=== PATIENT | male | born 1955 | race Caucasian/White ===

== ENCOUNTER → 2017-02-18 | Outpatient (CLI) | payer OTHER ==
[~2017-02-18] MED LIST: AMPH30CA3 PO; ASPI1TAB83 PO; EFF75 PO; HYDR1CAP85 PO; LORA-749 PO; LSN20 PO; MULT-506 PO; PRD20 PO
--- NOTE | 2017-02-18 11:58 | DIAGNOSTIC IMAGING REPORT ---
RENAL ULTRASOUND HISTORY: R31.9 Hematuria COMPARISON: None. FINDINGS: Right kidney: 12.1 cm. No hydronephrosis. Normal corticomedullary differentiation and cortical thickness. A 3.1 cm lower pole cyst. Left kidney: 11.4 cm. No hydronephrosis. Normal corticomedullary differentiation and cortical thickness. Bladder: No bladder wall thickening. The bilateral ureteral jets were identified. IMPRESSION: 1. A 3.1 cm cyst within the lower pole of the right kidney. 2. No hydronephrosis. Electronically signed by: Logan Clark M.D. 02/18/2017 11:56 AM Dictated Date/Time: 02/18/2017 11:55 AM
--- NOTE | 2017-02-18 12:12 | DIAGNOSTIC IMAGING REPORT ---
KUB CLINICAL HISTORY: Hematuria. COMPARISON STUDY: Renal ultrasound February 18, 2017. FINDINGS: No urinary calculi are identified on this exam. Bowel gas pattern is normal. Penetration is suboptimal. IMPRESSION: 1. No urinary calculi identified. 2. No evidence of a bowel obstruction. Electronically signed by: Jairo Deleon M.D. 02/18/2017 12:10 PM Dictated Date/Time: 02/18/2017 12:09 PM
== END | disposition home or self-care (01) ==
LOC: C.ULTR 11:20
PROVIDERS: ATTEND Family Medicine
DX: R31.9 Hematuria, unspecified (principal)

== ENCOUNTER → 2017-03-09 | Outpatient (CLI) | payer OTHER ==
[2017-03-09 12:57] LABS: URINE APPEARANCE CLEAR (CLEAR); URINE BILIRUBIN NEG (NEG); URINE COLOR YELLOW; URINE EPITHELIAL CELL AUTO 20-30 /lpf (0-5); URINE NITRITE NEG (NEG); URINE PH 5.5 (4.5-7.5); UROBILINOGEN NEG (NEG)
[2017-03-09 13:13] LABS: MANUAL MICROSCOPIC REQUIRED? NO; REVIEW REQ? NO
== END | disposition home or self-care (01) ==
LOC: C.LABPVFM 07:29
PROVIDERS: ATTEND Family Medicine
DX: R31.9 Hematuria, unspecified (principal); R39.15 Urgency of urination

== ENCOUNTER → 2017-03-18 | Outpatient (CLI) | payer OTHER ==
[~2017-03-18] MED LIST changes: -LORA-749 PO; +LORA10TA57 PO
--- NOTE | 2017-03-18 12:11 | DIAGNOSTIC IMAGING REPORT ---
TWO VIEW CHEST CLINICAL HISTORY: Cough. FINDINGS: PA and lateral chest radiographs are compared to study dated 06/01/2012 and correlated with chest CT dated 06/04/2012. The examination is degraded by large body habitus. The heart is mildly enlarged. The mediastinal contour is within normal limits. Pulmonary vasculature is noncongested. The lungs and pleural spaces are clear. There is no pneumothorax. The bony thorax appears intact. Degenerative change is noted throughout the thoracic spine. IMPRESSION: Cardiac enlargement with no active disease in the chest. Electronically signed by: Jewel Mejia M.D. 03/18/2017 12:09 PM Dictated Date/Time: 03/18/2017 12:08 PM
[2017-03-18 17:43] LABS: BASO % 0.4 %; BASO ABS # 0.03 K/uL (0-0.2); COMPLETE YES; EOS % 2.5 %; HEMATOCRIT 43.9 % (42-52); IG% 0.1 %; LYMPH % 27.2 %; LYMPH ABS # 2.24 K/uL (1.2-3.4); MEAN CELL VOLUME 94.2 fL (80-100); MEAN CORPUSCULAR HEMOGLOBIN 30.9 pg (25-34); MEAN CORPUSCULAR HGB CONC 32.8 g/dl (32-36); MEAN PLATELET VOLUME 11.7 fL (7.4-10.4); MONO % 9.8 %; PLATELET COUNT 250 K/uL (130-400); RED BLOOD COUNT 4.66 M/uL (4.7-6.1); WHITE BLOOD COUNT 8.24 K/uL (4.8-10.8)
== END | disposition home or self-care (01) ==
LOC: C.LABPVFM 11:53
PROVIDERS: ATTEND Nurse Practitioner
DX: R05 Cough (principal); J02.9 Acute pharyngitis, unspecified; I51.7 Cardiomegaly

== ENCOUNTER → 2017-03-21 | Outpatient (CLI) | payer OTHER | END | disposition home or self-care (01) | LOC: C.LABPVFM 10:14 | PROVIDERS: ATTEND Nurse Practitioner Adult Health | DX: R31.0 Gross hematuria (principal) ==

== ENCOUNTER → 2017-03-25 | Outpatient (CLI) | payer OTHER ==
[~2017-03-25] MED LIST changes: +OPTIRAY 320 IV PRN
--- NOTE | 2017-03-25 23:18 | DIAGNOSTIC IMAGING REPORT ---
CT OF THE ABDOMEN AND PELVIS WITH AND WITHOUT CONTRAST HEMATURIA PROTOCOL CLINICAL HISTORY: Gross hematuria. COMPARISON STUDY: Renal ultrasound February 18, 2017. TECHNIQUE: Unenhanced and split bolus phase imaging of the abdomen and pelvis was performed. Injection of 119 cc Optiray [address] DOSE: 2240.18 mGycm FINDINGS: No renal, ureteral or bladder calculi are present. There is no hydronephrosis or hydroureter. A 3 cm water attenuation lesion arising from the lower pole the right kidney reflects a cyst. There are no upper tract urothelial lesions. Bladder is suboptimally assessed on this exam given incomplete opacification and no bladder mass is identified. The liver, spleen, adrenal glands and pancreas are normal. There is no evidence for a bowel obstruction. There is no lymphadenopathy. There is sigmoid diverticulosis without evidence for acute diverticulitis. There are fat-containing inguinal and umbilical hernias. IMPRESSION: 1. No CT findings to explain hematuria. No urinary calculi or hydronephrosis. No upper tract urothelial lesions. Suboptimal evaluation of the bladder given incomplete opacification. 2. 3 cm right renal cyst. Electronically signed by: Jairo Deleon M.D. 03/25/2017 11:17 PM Dictated Date/Time: 03/25/2017 5:14 PM
== END | disposition home or self-care (01) ==
LOC: C.CTS 16:44
PROVIDERS: ATTEND Nurse Practitioner Adult Health
DX: R31.0 Gross hematuria (principal); N28.1 Cyst of kidney, acquired

== ENCOUNTER → 2017-08-29 | Outpatient (CLI) | payer OTHER ==
[~2017-08-29] MED LIST changes: +LORA-749 PO; -LORA10TA57 PO; -OPTIRAY 320 IV PRN
[2017-08-29 13:25] LABS: BLOOD UREA NITROGEN 19 mg/dl (7-18); BUN/CREATININE RATIO 22.8 (10-20); CALCIUM 8.7 mg/dl (8.5-10.1); CARBON DIOXIDE 24 mmol/L (21-32); CHLORIDE 107 mmol/L (98-107); CHOLESTEROL 214 mg/dl (0-200); CREATININE 0.85 mg/dl (0.60-1.40); GLUCOSE 97 mg/dl (70-99); POTASSIUM 4.4 mmol/L (3.5-5.1); SODIUM 138 mmol/L (136-145); TRIGLYCERIDES 145 mg/dl (0-150); VERY LOW DENSITY LIPOPROT CALC 29 mg/dl
[2017-08-29 13:29] LABS: CHOLESTEROL/HDL RATIO 4.2; HDL CHOLESTEROL 51 mg/dl; LDL CHOLESTEROL CALCULATED 134 mg/dl
[2017-08-29 13:35] LABS: ESTIMATED AVERAGE GLUCOSE 131 mg/dl; HA1C FLAG Normal (Normal)
== END | disposition home or self-care (01) ==
LOC: C.LABPVFM 08:44
PROVIDERS: ATTEND Family Medicine
DX: I10 Essential (primary) hypertension (principal); E78.5 Hyperlipidemia, unspecified; R73.9 Hyperglycemia, unspecified

== ENCOUNTER → 2017-09-23 | Day surgery (SDC) | payer OTHER ==
[~2017-09-23] VITALS: Ht 172.7 cm; Wt 136.4 kg
[~2017-09-23] MED LIST changes: +LIDOCAINE HCL 2% 2 ML VIAL (20MG/ML) ONE; +PROPOFOL IV EMULSION 10 MG/ML 20 ML VIAL IV ONE; +SODIUM CHLORIDE 0.9% 500ML 500 ML IV ONE; +TAMS0.4C38 PO
[2017-09-23 08:44] VITALS: Ht 172.7 cm; Wt 136.4 kg
--- NOTE | 2017-09-23 09:50 | Endo History and Physical ---
History & Physical Date of Service: Sep 23, 2017. Chief Complaint: Hx polyps Referring Physician: Dr. Posada History of Present Illness personal hx of colon polyps. Past Surgical History Hx Cardiac Surgery: No Hx Internal Defibrillator: No Hx Pacemaker: No Hx Abdominal Surgery: No Hx of Implantable Prosthesis: No Hx Post-Op Nausea and Vomiting: No Hx Cancer Surgery: No Hx Thoracic Surgery: No Hx Orthopedic: No Hx Urinary Tract Surgery: No Family History None Social History Smoking Status: Former Smoker Hx Substance Use: No Hx Alcohol Use: Yes (occassionally) Allergies Coded Allergies: Cefuroxime (Verified Allergy, Unknown, RASH,JOINT PAIN, 07/01/16) Current Medications Reported Home Medications Medications Dose Route/Sig Max Daily Dose Days Date Category Flomax (Tamsulosin Hcl) 0.4 Mg Cap 1 Cap PO DAILY 30 09/23/17 Reported Vistaril (Hydroxyzine Pamoate) 25 Mg Cap 25 Mg PO BID 07/01/16 Reported Prednisone 20 Mg Tab 20 Mg PO BID 07/01/16 Reported Claritin-D 24 Hour (Loratadine & Pseudoephedrine) 1 Tab Tab 1 Tab PO DAILY 07/01/16 Reported Multivitamin (Multivitamins) Tab 1 Tab PO DAILY 07/01/16 Reported Aspirin 81 Mg Tab 81 Mg PO DAILY 07/01/16 Reported Effexor (Venlafaxine Hcl) 75 Mg Tab 75 Mg PO BID 07/01/16 Reported Lisinopril 20 Mg Tab 20 Mg PO DAILY 07/01/16 Reported Adderall Xr 30MG (Amphetamine-Dextroamphetamine 30MG) 1 Cap Cap 25 Mg PO BID 06/01/12 Reported Vital Signs Weight (Kilograms): 136.36 Height (Feet): 5 Height (Inches): 8 Date Time Temp Pulse Resp B/P (MAP) Pulse Ox O2 Delivery O2 Flow Rate FiO2 09/23/17 09:12 36.6 107 24 155/99 (117) 95 Room Air Physical Exam General Appearance: no apparent distress Respiratory/Chest: Auscultation: breath sounds normal Cardiovascular: Heart Auscultation: RRR Abdomen: Inspection & Palpation: soft Liver: non-tender Assessment and Plan stable for colonoscopy
--- NOTE | 2017-09-23 10:28 | Discharge Instructions ---
Endoscopy Patient Instructions Date / Procedure(s) Performed Sep 23, 2017. Colonoscopy Allergy Information Coded Allergies: Cefuroxime (Verified Allergy, Unknown, RASH,JOINT PAIN, 07/01/16) Discharge Date / Findings Sep 23, 2017. No polyps/ left sided diverticulosis Medication Instructions Stopped Medication(s): ASA Provider Instructions Activity Restrictions - No exercising or heavy lifting for 24 hours. - Do not drink alcohol the day of the procedure. - Do not drive a car or operate machinery until the day after the procedure. - Do not make any important decisions or sign important papers in 24 hours after the procedure. Following Day: - Return to full activity which may include returning to work/school. Diet Start your diet with liquids and light foods (jello, soup, juice, toast). Then eat your usual diet if not nauseated. Treatment For Common After Affects For mild abdominal pain, bloating, or excessive gas: - Rest - Eat lightly - Lie on right side Follow-Up Information Follow-up with Dr. Posada as scheduled Anesthesia Information What You Should Know You have had a procedure that required some medicine to reduce anxiety and discomfort. This treatment is called moderate sedation. After receiving the treatment, you may be sleepy, but you will be able to breathe on your own. The effects of the treatment may last for several hours. Follow these instructions along with Activity/Diet recommendations noted above: * Do NOT do anything where dizziness or clumsiness would be dangerous. * Rest quietly at home today, then you can be up and about tomorrow. * Have a responsible person stay with you the rest of today. * You may have had an I.V. today. If so, you may take the dressing off later today. Recommendations Call your doctor if: * Trouble breathing * Continuous vomiting for more than 24 hours * Temperature above 101 degrees * Severe abdominal pain or bloating * Pain not relieved by pain medicine ordered * There is increased drainage or redness from any incision * A large amount of rectal bleeding greater than 2-3 tablespoons. (If you had a polyp/s removed or have hemorrhoids, a small amount of blood - from the rectum is to be expected.) * You have any unanswered questions or concerns. IN THE EVENT OF A SERIOUS EMERGENCY, GO TO THE NEAREST EMERGENCY ROOM Your discharge instructions were prepared by provider Devante Jacome. Patient Instructions Signature Page Puneet Gunsallus Patient (or Guardian) Signature/Date: I have read and understand the instructions given to me by my caregivers. Caregiver/RN/Doctor Signature/Date: The above-named patient and/or guardian has received patient instructions on this date. + Original Patient Signature Page (only) stays with chart. Please make copy for patient.
--- NOTE | 2017-09-23 10:34 | GI REPORT ---
Procedure Date: 09/23/2017 10:05 AM Procedure: Colonoscopy Indications: Personal history of colonic polyps Medicines: See the Anesthesia note for documentation of the administered medications Complications: No immediate complications. Estimated Blood Loss: Estimated blood loss: none. Procedure: Pre-Anesthesia Assessment: - Prior to the procedure, a History and Physical was performed, and patient medications, allergies and sensitivities were reviewed. The patient's tolerance of previous anesthesia was reviewed. - The risks and benefits of the procedure and the sedation options and risks were discussed with the patient. All questions were answered and informed consent was obtained. - Patient identification and proposed procedure were verified prior to the procedure by the physician and the nurse. The procedure was verified in the pre-procedure area. - Pre-procedure physical examination revealed no contraindications to sedation. - After reviewing the risks and benefits, the patient was deemed in satisfactory condition to undergo the procedure. After I obtained informed consent, the scope was passed under direct vision. Throughout the procedure, the patient's blood pressure, pulse, and oxygen saturations were monitored continuously. The scope was introduced through the anus and advanced to the terminal ileum, with identification of the appendiceal orifice and IC valve. The colonoscopy was performed without difficulty. The patient tolerated the procedure well. The quality of the bowel preparation was good. Findings: The perianal and digital rectal examinations were normal. Many small-mouthed diverticula were found in the sigmoid colon. The exam was otherwise without abnormality on direct and retroflexion views. Impression: - Diverticulosis in the sigmoid colon. - The examination was otherwise normal on direct and retroflexion views. - No specimens collected. Recommendation: - Repeat colonoscopy in 5 years for surveillance. - Discharge patient to home. Devante Jacome M.D. Devante Jacome MD 09/23/2017 10:34:19 AM This report has been signed electronically. Note Initiated On: 09/23/2017 10:05 AM I attest to the content of the Intraoperative Record and orders documented therein, exceptions below
--- NOTE | 2017-09-23 10:43 | Anesthesiology Progress Note ---
Anesthesia Post Op Note Date & Time Sep 23, 2017 at 10:43 Vital Signs Pain Intensity: 0 Vital Signs Past 12 Hours Date Time Temp Pulse Resp B/P (MAP) Pulse Ox O2 Delivery O2 Flow Rate FiO2 09/23/17 10:27 101 24 100/67 (78) 98 Room Air 09/23/17 09:12 36.6 107 24 155/99 (117) 95 Room Air Notes Mental Status: alert / awake / arousable, participated in evaluation Pt Amnestic to Procedure: Yes Nausea / Vomiting: adequately controlled Pain: adequately controlled Airway Patency, RR, SpO2: stable & adequate BP & HR: stable & adequate Hydration State: stable & adequate Anesthetic Complications: no major complications apparent
[2017-09-23 10:59] VITALS: BP 128/79; PULSE 91; O2SAT 97
== END | disposition home or self-care (01) ==
LOC: C.GI 08:33
PROVIDERS: ATTEND Internal Medicine Gastroenterology
DX: Z12.11 Encounter for screening for malignant neoplasm of colon (principal); K57.30 Diverticulosis of large intestine without perforation or abscess without bleeding; G47.33 Obstructive sleep apnea (adult) (pediatric); R73.03 Prediabetes; N40.0 Benign prostatic hyperplasia without lower urinary tract symptoms; F41.9 Anxiety disorder, unspecified; F32.9 Major depressive disorder, single episode, unspecified; I10 Essential (primary) hypertension; E78.00 Pure hypercholesterolemia, unspecified; E66.9 Obesity, unspecified; Z86.010 Personal history of colon polyps; Z87.891 Personal history of nicotine dependence; Z79.82 Long term (current) use of aspirin

== ENCOUNTER 2024-08-01 06:25 | Inpatient (IN) ==
--- NOTE | 2024-06-20 11:28 | PAT Medication Instructions ---
Medication Instructions Date of Service June 20, 2024 Home Medications Medication Instructions Recorded lisinopril 20 mg tablet 20 mg PO HS #90 tabs 08/24/23 triamcinolone acetonide 0.1 % 1 applic topical BID PRN rash #80 09/16/23 topical cream grams atorvastatin 20 mg tablet 20 mg PO QAM #90 tabs 01/18/24 duloxetine 40 mg capsule,delayed 40 mg PO QAM #90 caps 01/18/24 release lorazepam 0.5 mg tablet 0.5 mg PO BID PRN anxiety #60 tabs 03/15/24 semaglutide 2 mg/dose (8 mg/3 mL) 2 mg (0.75 mL) subcut Q7D #3 mL 03/15/24 subcutaneous pen injector tramadol 50 mg tablet 100 mg (2 x 50 mg) PO Q6H PRN pain 03/30/24 #60 tabs multivitamin 1 cap PO QAM naproxen sodium 220 mg capsule (Aleve) 440 mg PO BID PRN Pain lisinopril 20 mg tablet 20 mg PO HS coenzyme Q10 100 mg capsule (Co Q-10) 100 mg PO QAM triamcinolone acetonide 0.1 % topical cream 1 applic topical BID PRN rash magnesium oxide 400 mg PO QAM atorvastatin 20 mg tablet 20 mg PO QAM duloxetine 40 mg capsule,delayed release 40 mg PO QAM lorazepam 0.5 mg tablet 0.5 mg PO BID PRN anxiety semaglutide 2 mg/dose (8 mg/3 mL) subcutaneous pen injector 2 mg (0.75 mL) subcut Q7D tramadol 50 mg tablet 100 mg (2 x 50 mg) PO Q6H PRN pain gabapentin 100 mg capsule 100 mg PO UD rizatriptan 10 mg disintegrating tablet 10 mg PO UD PRN ASK your surgeon for instructions naproxen sodium 220 mg capsule (Aleve) 440 mg PO BID PRN Pain STOP taking 2 weeks before surgery coenzyme Q10 100 mg capsule (Co Q-10) 100 mg PO QAM STOP taking at least 7 days before surgery semaglutide 2 mg/dose (8 mg/3 mL) subcutaneous pen injector 2 mg (0.75 mL) subcut Q7D STOP taking 24 hours before surgery triamcinolone acetonide 0.1 % topical cream 1 applic topical BID PRN rash DO NOT take the morning of surgery multivitamin 1 cap PO QAM magnesium oxide 400 mg PO QAM Take morning of surgery With a small sip of water, OTHERWISE NOTHING TO EAT OR DRINK AFTER MIDNIGHT: atorvastatin 20 mg tablet 20 mg PO QAM duloxetine 40 mg capsule,delayed release 40 mg PO QAM lorazepam 0.5 mg tablet 0.5 mg PO BID PRN anxiety (if needed) tramadol 50 mg tablet 100 mg (2 x 50 mg) PO Q6H PRN pain (if needed) gabapentin 100 mg capsule 100 mg PO UD rizatriptan 10 mg disintegrating tablet 10 mg PO UD PRN (if needed) Take evening before surgery lisinopril 20 mg tablet 20 mg PO HS lorazepam 0.5 mg tablet 0.5 mg PO BID PRN anxiety (if needed) tramadol 50 mg tablet 100 mg (2 x 50 mg) PO Q6H PRN pain (if needed) gabapentin 100 mg capsule 100 mg PO UD rizatriptan 10 mg disintegrating tablet 10 mg PO UD PRN (if needed) Other Notes If you have any questions please call us at [phone] or [phone] or [phone] or [phone]
--- NOTE | 2024-06-28 11:38 | Anesthesiology Consultation ---
Date of Service June 28, 2024 Assessment & Plan (1) Encounter for pre-operative examination: Chart Review Chart Review: Acceptable Risk for Surgery and Patient seen in Pre Admission Testing - Check BSG AM DOS * Patient is NOT an ideal OPJ candidate (currently 23 hour obs) -Semaglutide instructions: Patient takes on (Sundays). Patient informed at PAT visit to stop 7 days prior to surgery- voiced understanding. Patient advised to inform prescriber of instructions. Last dose of Semaglutide scheduled 07/24/24 (will be off Semaglutide x 8 days by DOS on 08/01/24) Per PAT appt on 06/28/24, no recent illness/disease exposures, illness related symptoms, or recent illness/disease positive tests. Will leave to surgeon's discretion if preop Covid testing needed Teaching & Discussion Pre-Anesthesia Teaching/Discussion Notes: Instructed NPO after midnight before surgery,except medications with 15 cc of water. Medication instructions provided according to the PAT guidelines. History Surgery Operation Date: 08/01/24 09:00 Proposed Procedures p Right Total Knee Arthroplasty - Kemar Hess DO Height/Weight Height: 5 ft 8 in Weight: 124.1 kg Allergies Allergy/AdvReac Type Severity Reaction Status Date / Time ciprofloxacin [From Cipro] Allergy Severe Rash Verified 06/16/24 13:07 cefuroxime Allergy Intermediate RASH,JOINT Verified 06/16/24 13:07 PAIN Medications Home Medications Medication Instructions Recorded Confirmed Last Taken multivitamin 1 cap PO QAM 06/12/20 06/16/24 05/18/23 naproxen sodium 220 mg capsule 440 mg PO BID PRN Pain 06/12/20 06/16/24 06/16/20 08:00 (Aleve) lisinopril 20 mg tablet 20 mg PO HS #90 tabs 08/24/23 06/16/24 05/18/24 coenzyme Q10 100 mg capsule (Co 100 mg PO QAM 09/16/23 06/16/24 05/18/24 Q-10) triamcinolone acetonide 0.1 % 1 applic topical BID PRN rash #80 09/16/23 06/16/24 Unknown topical cream grams magnesium oxide 400 mg PO QAM 10/27/23 06/16/24 Unknown atorvastatin 20 mg tablet 20 mg PO QAM #90 tabs 01/18/24 06/16/2424 06:00 duloxetine 40 mg capsule,delayed 40 mg PO QAM #90 caps 01/18/24 06/16/24 05/19/24 06:00 release lorazepam 0.5 mg tablet 0.5 mg PO BID PRN anxiety #60 tabs 03/15/24 06/16/24 Unknown semaglutide 2 mg/dose (8 mg/3 mL) 2 mg (0.75 mL) subcut Q7D #3 mL 03/15/24 06/16/24 05/09/24 subcutaneous pen injector tramadol 50 mg tablet 100 mg (2 x 50 mg) PO Q6H PRN pain 03/30/24 06/16/24 Unknown #60 tabs gabapentin 100 mg capsule 100 mg PO UD 06/16/24 06/16/24 Unknown rizatriptan 10 mg disintegrating 10 mg PO UD PRN prn 06/16/24 06/16/24 Unknown tablet Past Medical History Medical History Anxiety Arthritis Benign hypertension Depression DM2 (diabetes mellitus, type 2) Stable GERD (gastroesophageal reflux disease) well controlled and stable History of bladder stone no recent issues Hx of migraine headaches 2-3 times per year Hyperlipidemia MARIE (obstructive sleep apnea) no device Tic disorder Follows with neurologist- controlled with Gabapentin (tic usually consists of body twitching) Exercise / Class Metabolic Activity III < 4 Walking/Shop/Light housework (one flight of stairs - no chest pain or SOB but goes slow- occ uses cane if knee pain aggravated ) Past Family History Family History Mother Ovarian cancer Father Cancer Denies family history of Prostate cancer Myocardial infarction Breast cancer Colorectal cancer Past Surgical History Surgical History History of cystoscopy hx bladder stones Hx of colonoscopy with polypectomy (04/2023) Hx of hand surgery (2011) left arm & hand Hx of tonsillectomy age 7 Hx of umbilical hernia repair (06/2020) Past Anesthesia History No Hx of Anesthesia Complications and No Family Hx of Anesthesia Complications History of PONV No Hx of PONV and No Hx of Motion Sickness Social History Smoking Status: Never smoker tobacco type: smokeless tobacco Do You Dip or Chew Tobacco: Yes (chews 1 can/day- advised ) Hx Alcohol Use: Yes Alcohol type: beer alcohol intake frequency: a few times a month Hx Substance Use: No substance use type: does not use Review of Systems Patient denies chest pain, shortness of breath, dyspnea on exertion, cough, wheezing, palpitations. No hx of seizures, stroke, [place]. No hx of blood clots or blood transfusions Physical Exam Vital Signs VITALS BP 127/88 P 82 TEMP 98.3 SP02 96% RESP 16 Constitutional no acute distress ENMT Mouth: no TMJ clicking Thyromental Distance: > or= 3.5 Finger Breadths (4.0) Mallampati Class: I Missing molars Cap to molar Neck + limited neck extension (mild) Respiratory normal respiratory effort; no respiratory distress Auscultation: lungs clear to auscultation bilaterally; no wheezes Cardiovascular Rate/Rhythm: regular rate and regular rhythm Heart Sounds: no murmur Vessels: no carotid bruit Heart sounds diminished throughout Musculoskeletal Spine: no pain with cervical ROM Extremities: extremities normal to inspection Psychiatric Orientation: alert Lab Results Anesthesia Preop Results Results Anesthesia Widget: WBC 5.15 K/ul (4.8-10.8) 06/28/24 Hgb 13.4 g/dl (14.0-18.0) L 06/28/24 Hct 42.9 % (42.0-52.0) 06/28/24 Plt 221 K/uL (130-400) 06/28/24 Na 139 mmol/L (136-145) 06/28/24 K 4.4 mmol/L (3.5-5.1) 06/28/24 Cl 104 mmol/L (98-107) 06/28/24 CO2 30 mmol/L (21-32) 06/28/24 BUN 17 mg/dl (6-23) 06/28/24 Creat 0.65 mg/dl (0.6-1.4) 06/28/24 Glucose Level 95 mg/dl (70-99(Fasting)) 06/28/24 PT 10.5 Seconds (9.0-12.0) 06/28/24 PTT 28 Seconds (21-31) 06/28/24 INR 1.0 (0.9-1.1) 06/28/24 HA1c 5.6 % (4.5-5.6) 06/28/24 Blood Type O Positive 06/28/24 Antibody Screen NEGATIVE 06/28/24 Testing Electrocardiogram Date: 06/28/24 Findings: + NSR @ (79bpm) Normal EKG per cardio Chest X-Ray Date: 06/28/24 Findings: + NAD and + cardiomegaly
--- NOTE | 2024-07-28 12:16 | History & Physical Report ---
Date of Service July 28, 2024 Assessment & Plan (1) Osteoarthritis of right knee: We will proceed with a right total knee arthroplasty. Postoperatively he will be placed on aspirin for DVT prophylaxis and kept overnight in the hospital for postop medical management. He plans to go to use [facility] physical therapy upon discharge. History of Present Illness Chief Complaint: Osteoarthritis of the right knee. Primary Care Provider: Carmen Meneses MD Puneet is a pleasant six 8-year-old male who has been ill with chronic increasing right knee pain. X-rays and clinical examination have been diagnostic for advanced arthritis of the right knee. After failing extensive conservative treatment, he has elected to proceed with a right total knee arthroplasty.. Allergies Allergy/AdvReac Type Severity Reaction Status Date / Time ciprofloxacin [From Cipro] Allergy Severe Rash Verified 06/16/24 13:07 cefuroxime Allergy Intermediate RASH,JOINT Verified 06/16/24 13:07 PAIN Home Medications Medication Instructions Recorded Confirmed Type multivitamin 1 cap PO QAM 06/12/20 06/16/24 History naproxen sodium 220 mg capsule 440 mg PO BID PRN Pain 06/12/20 06/16/24 History (Aleve) coenzyme Q10 100 mg capsule (Co 100 mg PO QAM 09/16/23 06/16/24 History Q-10) triamcinolone acetonide 0.1 % 1 applic topical BID PRN rash #80 09/16/23 06/16/24 Rx topical cream grams magnesium oxide 400 mg PO QAM 10/27/23 06/16/24 History atorvastatin 20 mg tablet 20 mg PO QAM #90 tabs 01/18/24 06/16/24 Rx duloxetine 40 mg capsule,delayed 40 mg PO QAM #90 caps 01/18/24 06/16/24 Rx release lorazepam 0.5 mg tablet 0.5 mg PO BID PRN anxiety #60 tabs 03/15/24 06/16/24 Rx semaglutide 2 mg/dose (8 mg/3 mL) 2 mg (0.75 mL) subcut Q7D #3 mL 03/15/24 06/16/24 Rx subcutaneous pen injector tramadol 50 mg tablet 100 mg (2 x 50 mg) PO Q6H PRN pain 03/30/24 06/16/24 Rx #60 tabs gabapentin 100 mg capsule 100 mg PO UD 06/16/24 06/16/24 History rizatriptan 10 mg disintegrating 10 mg PO UD PRN prn 06/16/24 06/16/24 History tablet lisinopril 20 mg tablet 20 mg PO HS #90 tabs 07/06/24 Rx Past Med/Surg History Problem List (Updated 07/28/24 @ 12:16 by Kemar Hess DO) Osteoarthritis of right knee Migraine without aura Fatigue Tic disorder Statin intolerance H/O umbilical hernia repair (06/21/20) Laparoscopy Enterolysis, Open Umbilical Hernia Repair Dr. Valente 06/21/2020 Encounter for pre-operative examination Hypertension Arthritis Hyperlipidemia (Chronic) DM2 (diabetes mellitus, type 2) (Chronic) DIET MANAGED and injectable medication-F/U PCP Left rotator cuff tear Tear of medial meniscus of right knee Chewing tobacco use Vitamin D deficiency MARIE (obstructive sleep apnea) does not wear device Low back pain GERD (gastroesophageal reflux disease) Controlled with OTC meds Depression with anxiety (Chronic) Obesity Benign hypertension (Chronic) Hx of colonic polyps Medical History Depression Tic disorder Follows with neurologist- controlled with Gabapentin (tic usually consists of body twitching) GERD (gastroesophageal reflux disease) well controlled and stable Hx of migraine headaches 2-3 times per year Anxiety Arthritis Benign hypertension MARIE (obstructive sleep apnea) no device Hyperlipidemia DM2 (diabetes mellitus, type 2) Stable History of bladder stone no recent issues Surgical History Hx of colonoscopy with polypectomy (04/2023) Hx of umbilical hernia repair (06/2020) History of cystoscopy hx bladder stones Hx of hand surgery (2011) left arm & hand Hx of tonsillectomy age 7 Family History Mother Ovarian cancer Father Cancer Denies family history of Prostate cancer Myocardial infarction Breast cancer Colorectal cancer Social History Smoking Status: Never smoker Tobacco Type: Smokeless Tobacco (Dip or Chew) Age Started Using Tobacco: 21; Age Quit Using Tobacco: 22; Second Hand Exposure: No; Do You Dip or Chew Tobacco: Yes (chews 1 can/day- advised ); Tobacco Cessation Education Requested by Patient: No Hx Alcohol Use: Yes Alcohol type: beer Alcohol Intake Frequency: 2-3 x/Week Alcohol Intake Frequency Comment: 2-4 drinks a week Hx Substance Use: No Preferred Language: Swiss Communication Ability: Effective Visual Impairment: No Limitations Hearing Ability: Use of Hearing Aid Commercial 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 Captain Required: No Beliefs That Will Affect Care: None marital status: Current Living Situation: Spouse current occupational status: retired How many Children do You have: 2 Other Information That Helps Us Care for You: No Feels Safe at Home: Yes Safety Concerns: Feels Safe At This Time Childhood Exposure to Second-Hand Smoke: Yes Diet: regular caffeine: Yes (coffee) Dental Care, Regularly: Yes Physical Activity Frequency: 1-2 Times per Week Seatbelt Use: always Sunscreen Use: Yes ("when needed") Assistive Devices: Hearing Aid - Bilateral Review of Systems All systems reviewed & are unremarkable except as noted in HPI & below. Physical Exam Physical exam of the right knee shows a varus deformity. Tenderness palpation of the distal medial femoral condyle and over the medial joint line.. Constitutional WD/WN, vitals as above Eyes PERRL, conjunctivae normal, anicteric sclerae ENMT external ear and nose normal, oropharynx normal Neck trachea midline, no thyromegaly Respiratory normal respiratory effort Cardiovascular RRR, no murmur, no edema Gastrointestinal (Abdomen) normal bowel sounds, soft, nontender, no hepatosplenomegaly Psychiatric A+Ox3, euthymic affect Results & Data Results & Data Laboratory Results . Diagnostic Findings X-rays of the right knee show advanced osteoarthritis with joint space narrowing, osteophyte formation, and [id number] articulation. PG Care Time/CCT Total # of Minutes Spent Total Time Spent with Patient: Total time spent is greater than 50% in coordination of care (as documented) at patient's floor/unit and/or counseling patient: Coding Level of Care Code None Diagnoses Osteoarthritis of right knee M17.11
[2024-08-01] MEDS ORDERED: ROPIVACAINE 0.5% 5 MG/ML 30 ML VIAL ONE (06:32)
--- NOTE | 2024-08-01 06:35 | History & Physical Bridge Note ---
Date of Service August 01, 2024 History & Physical Bridge Note I have examined the patient, reviewed the History & Physical and in the interval since the performance of the History & Physical I have noted the following changes of clinical significance: no changes noted
[2024-08-01] MEDS ORDERED: MIDAZOLAM HCL 1 MG/ML 2ML VIAL ONE (07:01)
[2024-08-01] MEDS ORDERED: fentaNYL citrate PF 100 MCG/2 ML VIAL ONE (07:01)
[2024-08-01] MEDS: FAMOTIDINE 20 MG TAB PO SCH (07:07)
[2024-08-01] MEDS: GABAPENTIN 300 MG CAP PO SCH (07:07)
[2024-08-01] MEDS: ACETAMINOPHEN 500 MG TAB PO SCH (07:08)
[2024-08-01] MEDS: dexAMETHasone**PF** 10 MG/ML VIAL IV SCH (07:09)
[2024-08-01] MEDS: LR 60ML/HR IV SCH (07:09)
[2024-08-01] MEDS: LR 500ML BOLUS, THEN 15ML/HR IV SCH (07:09)
[2024-08-01] MEDS ORDERED: Nursing to Pharmacy Communication SCH (07:15)
[2024-08-01] MEDS: TRANEXAMIC ACID 1,000 MG **IV Pre-op IV SCH (07:41)
[2024-08-01] MEDS: ceFAZolin 3000MG 3,000 MG/72.5 ML BAG IV SCH (07:53)
[2024-08-01] MEDS ORDERED: PROPOFOL IV EMULSION 10 MG/ML 20 ML VIAL IV ONE (08:24)
[2024-08-01] MEDS ORDERED: ONDANSETRON INJ 2 MG/ML 2 ML VIAL ONE (08:24)
[2024-08-01] MEDS ORDERED: LIDOCAINE 2% 2 ML VIAL/AMP(20MG/ML) INFIL ONE (08:24)
[2024-08-01] MEDS: ROPIV 0.5% 246mg, Ketorolac 30mg, EPINEPHrine 0.5mg in NSS INFIL SCH (08:27)
[2024-08-01] MEDS: ORTHO JOINT ANESTHETIC ONE (08:27)
[2024-08-01] MEDS: TRANEXAMIC ACID 1,000 MG **IV Intra-op IV SCH (08:55)
--- NOTE | 2024-08-01 09:03 | Operative Report ---
PG Post Operative Report Pre & Post Diagnosis Operation Date: 08/01/24 08:00 Pre-Op Diagnosis: Right Knee Osteoarthritis Post-Op Diagnosis: Right Knee Osteoarthritis I identified the patient and participated in the time-out.: Yes Procedure Operation Date: 08/01/24 08:00 Actual Procedures p Right Total Knee Arthroplasty(Right) - Kemar Hess DO Surgeon Kemar Hess DO Loop Tender Nola Leigh PA-C Estimated Blood Loss 30 Findings Consistent with Post-Op Diagnosis Specimens Right femoral and tibial bone Description of Procedure Implants used: I used a Regina Persona total knee arthroplasty system with a size 9 PS standard femur, F tibia, 34 oval patella, and a size 12 CPS polyethylene bearing. All components were cemented in place with Biomet cement. Puneet arrived [facility] for the above procedure. He was seen in the preoperative holding area and the operative extremity was identified and signed. He was given a preoperative antibiotic, TXA, a spinal anesthetic and an adductor nerve block. He was taken back to the operating room and laid on the table in supine position. He was given basic sedation. The operative knee was then prepped and draped in sterile fashion. A timeout was done, and the patient and the operative extremity was properly identified. A midline incision was made directly over the patella. Dissection was taken down to the extensor mechanism. A medial parapatellar arthrotomy was used. The medial retinaculum was released and the fat pad was mostly excised. The knee was flexed and the ACL, PCL, and meniscus were removed. A drill was sent down the center of the femoral canal followed by an intramedullary ruddy. Off that ruddy a distal femoral cutting block was placed. 9 mm was resected off the distal femur at 5 of valgus. A posterior referencing AP sizing guide was then placed on the distal femur. The femur measured to be a size 9. 2 drill holes were placed in 3 of external rotation. A 4-in-1 cutting block was then impacted into place. Anterior, posterior, and chamfer cuts were then made. The proximal tibia was then exposed. An external tibial alignment guide was placed. A tibial cut guide was then anchored in place and the proximal tibia was then resected. The posterior aspect of the knee was then opened up and any additional meniscus fragments and osteophytes were removed. The tibia measured to be a size F. The tibial plate was then placed in the appropriate rotation and the tibia was drilled and punched. Trial components were then placed. I used a size 12 CPS polyethylene insert. The knee was brought through a full range of motion and felt to be stable. The peg holes for the femoral component were then drilled. The patella was then everted and 9 mm was resected off the posterior aspect of the patella. The patella measured to be a size 34 oval. 3 peg holes were then drilled. A trial patella was placed. The knee was once again brought through a full range of motion and felt to be stable. Trial components were then removed. The surrounding soft tissues were injected with 100 cc of an orthopedic pain control cocktail. All components were then cemented into place with Biomet cement. The final polyethylene insert was then snapped into place. Once cement was dry the tourniquet was deflated. Hemostasis was obtained. A dilute betadyne lavage was then done for 3 minutes. The joint was then irrigated with normal saline solution. The medial parapatellar arthrotomy was then closed with #1 Vicryl suture. The skin was closed with 2-0 Vicryl, 3-0V lock suture, and ky. A soft compressive dressing was placed. He was then transferred to a hospital bed and taken to the postanesthesia care unit in stable condition. He tolerated the procedure well. Nola Leigh PA-C, was present for the entire procedure. He was critical for patient positioning, prepping, draping, retraction exposure, wound closure and application of sterile dressing. I attest to the content of the Intraoperative Record and any orders documented therein. Any exceptions are noted below.
[2024-08-01] MEDS ORDERED: METOCLOPRAMIDE HCL INJ 5 MG/ML 2 ML VIAL IV PRN (09:34)
[2024-08-01] MEDS ORDERED: ACETAMINOPHEN 1,000 MG/100 ML VIAL IV PRN (09:34)
[2024-08-01] MEDS ORDERED: ONDANSETRON INJ 2 MG/ML 2 ML VIAL IV PRN (09:34)
[2024-08-01] MEDS ORDERED: NALOXONE HCL 0.4 MG/1 ML VIAL/CARP IV PRN (09:34)
[2024-08-01] MEDS ORDERED: diphenhydrAMINE Capsule 25 MG CAP PO PRN (09:34)
[2024-08-01] MEDS ORDERED: MAGNESIUM HYDROXIDE SUSP 30 ML UDC PO PRN (09:34)
[2024-08-01] MEDS ORDERED: bisacodyL 10 MG SUPP PR PRN (09:34)
[2024-08-01] MEDS ORDERED: NON-FORMULARY MEDICATION (Naproxen Sodium [Aleve] 220 mg Capsule) PO PRN (09:37)
[2024-08-01] MEDS ORDERED: RIZATRIPTAN BENZOATE MLT 10 MG TAB PO PRN (09:37)
[2024-08-01] MEDS ORDERED: TRIAMCINOLONE ACET 0.1% CR 15 GM TUBE TOP PRN (09:37)
--- NOTE | 2024-08-01 10:13 | XRay Report ---
XR knee RT 1 or 2V routine CLINICAL HISTORY: Postoperative evaluation. COMPARISON: Right knee radiographs March 21, 2024. FINDINGS: Alignment of the total right knee arthroplasty is anatomic. There is no periprosthetic fra cture or unexpected radiopaque foreign body. There are skin ky. IMPRESSION: Expected findings following total right knee arthroplasty. ACT 112: Negative or not required by law. Electronically signed by: Jairo Deleon M.D. 08/01/2024 10:10 AM
--- NOTE | 2024-08-01 10:38 | Anesthesiology Progress Note ---
Date of Service August 01, 2024 Anesthesia Post Procedure Vital Signs Vital Signs: Temp Pulse Pulse Resp BP Pulse Ox O2 Del Method 08/01/24 10:05 71 16 134/84 95 Nasal Cannula 08/01/24 09:55 36.5 C 75 15 136/87 93 Room Air 08/01/24 09:45 74 16 128/91 100 Oxymask 08/01/24 09:35 36.2 C L 75 18 118/77 95 Oxymask 08/01/24 06:49 36.6 C 83 22 148/97 H 94 Room Air O2 Flow Rate 08/01/24 10:05 2 08/01/24 09:55 08/01/24 09:45 4 08/01/24 09:35 6 08/01/24 06:49 Pain Intensity Right Knee: Pain Intensity: 5 Transfer of Care Handoff Completed per policy Notes Mental Status: alert / awake / arousable Patient Amnestic to Procedure: Yes Nausea / Vomiting: adequately controlled Pain: adequately controlled Airway Patency, RR, SpO2: stable & adequate BP & HR: stable & adequate Hydration State: stable & adequate Neuraxial Anesthesia: was administered and sensory block is resolving Anesthetic Complications: no major complications apparent
[2024-08-01] MEDS: oxyCODONE HCL IR 5 MG TAB (IMMEDIATE RELEASE) PO PRN (10:39)
[2024-08-01] MEDS: ALLERGY Noted to ORDERED Medication SCH (11:34)
[2024-08-01] MEDS: KETOROLAC TROMETHAMINE 15 MG/ML VIAL IV SCH (12:15)
[2024-08-01] MEDS: GABAPENTIN 100 MG CAP PO SCH ×2 (12:57→20:03)
[2024-08-01] MEDS: HYDROmorphone INJ 0.5 MG/0.5 ML SYR IV PRN (13:03)
[2024-08-01] MEDS: ceFAZolin 2000MG 2,000 MG/15 ML SYR IV SCH (16:01)
[2024-08-01] MEDS: SENNA 8.6 MG TAB PO SCH (20:03)
[2024-08-01] MEDS: lisinopril 20 MG TAB PO SCH (20:03)
[2024-08-01] MEDS: DOCUSATE SODIUM 100 MG CAP PO SCH (20:03)
[2024-08-01] MEDS: LORazepam 0.5 MG TAB PO PRN (23:07)
--- NOTE | 2024-08-02 07:13 | Orthopedic Progress Note ---
Date of Service August 02, 2024 Assessment & Plan (1) Status post right knee replacement: Overall he is doing fairly well. He is not having too much pain in the right knee. He will be seen by physical therapy today for ambulation and range of motion exercises. He is on aspirin for DVT prophylaxis. He does not feel safe returning home. He is hoping to be discharged to a rehab facility. Case management will work with him on that today. He is orthopedically stable for discharge if a bed becomes available. Jong Teixeira was seen and examined at bedside this morning. Overall he is doing fairly well. Is not having too much pain in the right knee. Has been up and ambulating to the bathroom. He has no other complaints.. Review of Systems All systems reviewed & are unremarkable except as noted in HPI & below. Physical Exam On physical exam of the right knee, the dressing is clean and dry. His leg is out full extension. He has active dorsiflexion plantarflexion of his right ankle.. Results & Data Results & Data Laboratory Results . Diagnostic Findings Postoperative x-rays of the right knee show the prosthesis to be in anatomic alignment without any evidence of fracture complication, or loosening.. PG Care Time/CCT Total # of Minutes Spent Total Time Spent with Patient: Total time spent is greater than 50% in coordination of care (as documented) at patient's floor/unit and/or counseling patient: Coding Level of Care Code 89058 Post Operative Follow-Up Diagnoses Status post right knee replacement Z96.651
[2024-08-02] MEDS: MAGNESIUM OXIDE 400 MG TAB PO SCH (08:58)
[2024-08-02] MEDS: ASPIRIN 325 MG ECTAB PO SCH (08:58)
[2024-08-02] MEDS: dexAMETHasone 4 MG TAB PO SCH (08:59)
[2024-08-02] MEDS: MULTIVITAMIN TAB PO SCH (08:59)
[2024-08-02] MEDS ORDERED: NON-FORMULARY MEDICATION (Multivitamin capsule) PO SCH (09:00)
[2024-08-02] MEDS: ATORVASTATIN 20 MG TAB PO SCH (09:00)
[2024-08-02] MEDS: DULoxetine HCL 20 MG CAP PO SCH (09:00)
--- NOTE | 2024-08-03 07:53 | Orthopedic Progress Note ---
Date of Service August 03, 2024 Assessment & Plan (1) Status post right knee replacement: Unfortunately still dealing with a lot of pain in the right knee. He is little better apprehensive about even going to rehab. Will see how he does today with physical therapy. Case management will begin to talk to him about rehab options. He is on aspirin for DVT prophylaxis. The nursing staff can change his dressing today. Everything else looks okay with regards to his knee I think he is just a little bit hyper inflamed. He can be discharged to rehab today if a bed becomes available. Jong Teixeira was seen and examined at bedside this morning. Unfortunately still really struggle with the knee. He was able to ambulate some yesterday with therapy but since then he said has been unable to put any weight on his knee. He has no other complaints.. Review of Systems All systems reviewed & are unremarkable except as noted in HPI & below. Physical Exam On physical examination of the right knee, there is some ecchymosis around the incision. No signs of infection. There is no drainage.. Results & Data Results & Data Laboratory Results . Diagnostic Findings . PG Care Time/CCT Total # of Minutes Spent Total Time Spent with Patient: Total time spent is greater than 50% in coordination of care (as documented) at patient's floor/unit and/or counseling patient: Coding Level of Care Code 79873 Post Operative Follow-Up Diagnoses Status post right knee replacement Z96.651
[2024-08-03] MEDS: ACETAMINOPHEN 500 MG TAB PO PRN (08:53)
[2024-08-03 20:15] VITALS: RESP 18
[2024-08-04 07:50] VITALS: BP 127/80; TEMP 98.2
[2024-08-04 10:35] VITALS: PULSE 102; O2SAT 93
--- NOTE | 2024-08-05 15:19 | Discharge Summary ---
Date of Service August 05, 2024 Admission HPI (Per Admitting) Puneet is a pleasant six 8-year-old male who has been ill with chronic increasing right knee pain. X-rays and clinical examination have been diagnostic for advanced arthritis of the right knee. After failing extensive conservative treatment, he has elected to proceed with a right total knee arthroplasty.. Admission Exam (Per Admitting) Physical exam of the right knee shows a varus deformity. Tenderness palpation of the distal medial femoral condyle and over the medial joint line.. Principal Diagnosis Same as "Discharge Diagnosis" noted below under Discharge Instructions. Discharge Exam On physical examination of the right knee, there is some ecchymosis around the incision. No signs of infection. There is no drainage.. Discharge Data Procedures Performed Operation Date: 08/01/24 08:00 Actual Procedures p Right Total Knee Arthroplasty(Right) - Kemar Hess DO Ordered Studies 08/01/24 05:00 US - OR guided needle placemen Routine Hospital Course (1) Status post right knee replacement: On August 01 2024 Puneet right to [facility] and underwent a right knee replacement without complication. He had a spinal anesthetic. Postoperatively he was started on aspirin for DVT prophylaxis and transferred to the general orthopedic floors. On postop day #1, he was having a lot of pain in his knee. He was having difficulty ambulating with physical therapy. She was hoping to go to a rehab facility. On postop day #2, he continued to struggle with pain in his knee. He was able to ambulate and participate with physical therapy but the pain was really an issue. On postop day #3 his pain was better. He was able to work harder with physical therapy. Insurance to a rehab facility was denied. He was then discharged to home. He will follow-up with orthopedics in 2 weeks. PG Care Time/CCT Total # of Minutes Spent Total Time Spent with Patient: Total time spent is greater than 50% in coordination of care (as documented) at patient's floor/unit and/or counseling patient: Discharge Plan Discharge Items Patient Disposition: Home - Self-Care Reason For Visit: S/P RIGHT TOTAL KNEE ARTHROPLASTY Discharge Diagnosis: Right knee replacement Activity: Per Instructions section Non-emergency contact: Surgeon Call non-emergency contact if: your wound has increased redness and your wound has increased drainage Follow-up/Referrals: Carmen Meneses MD [Primary Care Provider] - Diet: Regular Addtl Attending Provider Instructions: Activity and Therapy Recommendations: * If you are using [facility] then therapy will be provided at your home until they feel you have accomplished all of your goals. * If you are using [facility] then Physical Therapy will be provided until they feel you are ready to start Outpatient Physical Therapy. * If you are not using home therapy then Outpatient Physical Therapy should start about 3-5 days from your day of surgery. Therapy will last about 6-10 weeks * It is important not to put a pillow under your knee when you are relaxing or sleeping. It is just as important to make sure you are getting your knee perfectly straight as it is to regain your knee bend. * You were shown a series of exercises in the hospital. Do these exercises three times each day including the exercises you were shown in physical therapy. * Get up and walk several times each day. For the first four weeks, try not to stand or walk for more than one hour at a time. If you do stand or walk for more than one hour, you will not hurt anything, but your leg will likely swell. * As you feel comfortable, you may change from the walker or crutches to a cane and then to independent walking. Medications: * Narcotic You will likely be sent home from the hospital with a prescription for the narcotic pain medication that worked best throughout your stay. * Cefadroxil -take the antibiotic twice a day for 10 days to help prevent infec tion. * Aspirin Most patients will be required to take Aspirin 81mg twice a day for 6 weeks after surgery. This is obtained [id number] and a prescription is not necessary. * Other medications may be prescribed for specific circumstances. If you have any questions, please call the office at . * Resume previous home medications unless otherwise instructed TEDs/Elastic Stockings: The white elastic stockings help limit swelling and prevent blood clots from forming in your legs.~ The more you wear them, the more they work. Wear them for six weeks. Dressing Care: The dressing can be changed after physical therapy on postop day #1. Daily dry dressing changes for a few days, especially if the incision is still draining some. If the incision is not draining then you may leave the ky open to air. If there is a little bit of drainage or if the ky are getting stuck on your clothing then cover the incision with a dry dressing. The ky will be removed at your 2 week follow-up appointment. Showering: You may shower 5 days from the day of surgery as long as the incision is no longer draining. You may shower with the ky exposed. Let soapy water run over the ky and pat them dry. Do not scrub or soak the incision. Diet: You may resume your previous diet. Things To Watch For: * Drainage from the incision site that occurs more than one week after your surg concha. * Increased redness at the incision site. * Fever above 102 degrees Fahrenheit. * Unusual chest pain or shortness of breath. * Call [facility] at with any of the above problems Follow-Up Visit: Follow-up with Dr. Hess's PA (Kemar Dye) 2-3 weeks after your day of surgery. He will remove your ky and answer any questions. If you have any additional questions or concerns, Dr Hess is usually in the office at the same time and will be available An appointment was probably scheduled when you signed-up for surgery in the [facility]. If you have any questions call Office Instructions: More detailed instructions as well as Frequently Asked Questions were provided in a folder by our office when you signed-up for surgery. Please review these instructions when you get home. If you have any further questions or concerns, please feel free to call the office at [phone] Pending Studies at Discharge: No Stand-Alone Forms: [facility] Sm[facility] Cess[facility] Medications and DC Order Prescriptions: New oxycodone 5 mg Tablet 5 mg PO Q4H PRN (Reason: pain) Qty: 30 0RF aspirin [Adult Aspirin Regimen] 81 mg tablet,delayed release (DR/EC) 81 mg PO BID Qty: 84 0RF cefadroxil 500 mg capsule 500 mg PO BID 10 Days Qty: 20 0RF Continued duloxetine 40 mg capsule,delayed release(DR/EC) 40 mg PO QAM Qty: 90 1RF atorvastatin 20 mg tablet 20 mg PO QAM Qty: 90 1RF tramadol 50 mg tablet 100 mg PO Q6H PRN (Reason: pain) Qty: 60 1RF lisinopril 20 mg tablet 20 mg PO HS Qty: 90 1RF coenzyme Q10 [Co Q-10] 100 mg capsule 100 mg PO QAM triamcinolone acetonide 0.1 % cream 1 applic topical BID PRN (Reason: rash) Qty: 80 3RF magnesium oxide 400 mg magnesium capsule 400 mg PO QAM semaglutide 2 mg/dose (8 mg/3 mL) pen injector 2 mg subcut Q7D Qty: 3 5RF Patient Comments: last dose 06/12/2024 lorazepam 0.5 mg tablet 0.5 mg PO BID PRN (Reason: anxiety) Qty: 60 3RF multivitamin capsule 1 cap PO QAM naproxen sodium [Aleve] 220 mg Capsule 440 mg PO BID PRN (Reason: Pain) rizatriptan 10 mg tablet,disintegrating 10 mg PO UD PRN (Reason: prn) Rx Instructions: take 1 tab at onset of headache; if no relief may repeat 1 tab after at least 2 hrs; max = 3 tabs/24 hr PO gabapentin 100 mg capsule 100 mg PO UD Rx Instructions: 2 caps in AM and 2 caps at noon and 1 cap at night Discharge Orders: Discharge Order (Routine); Ordered 08/02/24 Ordered By: Kemar Selby/Other Patient Handouts: Home Safety After Joint Surgery Admission Data Admit Date/Time: 08/03/24 07:53 Attending Provider: Kemar Hess Admit Provider: Kemar Hess Primary Care Provider: Carmen Mneeses Other Providers: Anne Fregoso Other Interventions: Discharge Summary Assessment (RN) Last Done: 08/04/24 09:35
== END 2024-08-04 11:31 | disposition home or self-care (01) | DRG 470 ==
LOC: ASU 06:25 → 3E 06:25